=== PATIENT | female | born 1970 | race Hispanic/Latino ===

== ENCOUNTER 2021-04-29 08:10 | Day surgery (SDC) | payer OTHER ==
[2021-04-29] MEDS ORDERED: NITROGLYCERIN 0.4 MG TAB SUBL SL NR (08:48)
[2021-04-29] MEDS ORDERED: ATROPINE 0.1% (1 MG/10 ML) CARDIAC SYRINGE ONE (09:51)
[2021-04-29] MEDS ORDERED: METOPROLOL TARTRATE 5 MG/5 ML INJ IV ONE (09:53)
[2021-04-29] MEDS ORDERED: METOPROLOL TARTRATE 50 MG TAB PO SCH (10:00)
[2021-04-29 11:07] VITALS: BP 101/58
--- NOTE | 2021-04-29 11:09 | Cat Scan Report ---
CTA HEART WITH AND WITHOUT CONTRAST 04/29/2021 9:55 AM TECHNIQUE: Routine ECG-gated coronary CT angiography performed on a 64-channel system. 3-D/MIP reform ats were postprocessed. Note that this exam targets the heart and the entire chest was not imaged. CONTRAST: 100 ml Omnipaque 350 HISTORY: Chest Pain COMPARISONS: none PREMEDICATION: See nurse's notes. FINDINGS: CARDIAC/CORONARY FINDINGS: Please see cardiology report in this particular case. EXTRACARDIAC/EXTRACORONARY FINDINGS: VISUALIZED LUNGS: unremarkable VISUALIZED MEDIASTINUM: unremarkable VISUALIZED CHEST WALL: unremarkable VISUALIZED UPPER ABDOMEN: Moderate hepatic steatosis is evident. No obvious liver lesion in the visua lized liver. . IMPRESSION 1. Please see cardiology dictation in this particular case for the cardiac/coronary findings. 2. Hepatic steatosis. DISCLAIMER: This is a combined radiology and cardiology interpretation. Cardiology is solely responsible for rep orting of cardiac and coronary findings. Radiology is solely responsible for reporting of the extrac ardiac and extracoronary findings. Signer Name: Augusto Manning Jr, MD Signed: 04/29/2021 11:04 AM Workstation Name: [id number]
--- NOTE | 2021-04-30 06:36 | CT Calcium Scoring Report ---
Coronary Calcium Score Date of service: 04/30/21 Procedure: High-resolution computed tomographic imaging of the chest was performed on04/29/21 with particular attention paid to the coronary arteries. Images from the examination were analyzed for the presence and extent of coronary artery calcification, using coronary calcium quantification software. The patient tolerated the procedure well and there were no complications. The results of the coronary calcification analysis are provided below. The patient scores are compared with published data related to scores for people of a similar age and the same gender. - Findings Left Anterior Descending Artery: 4 Left Circumflex(LCX): 31.4 Right Coronary Artery(RCA): 31 Total Agatson Score: 66.4 Percentile Rankin Findings: Cardiac CTA Indication: chest pain Informed consent obtained Procedure: The patient was brought to the cardiac ct laboratory at [facility] in stable condition after a 4 hour fast. Heart rate was regulated by beta blockade. Sublingual ngt was administered. After data acquisition and reconstruction, the images were processed and reviewed on the computer workstation. Multiple phases of the cardiac cycle were assessed for image interpretation. Volume rendered images, multiplanar reformated images, and maximum intensity projections images were generated and reviewed A coronary calcium score was performed via the Agatston method. A separate radiology assessment of the non cardiac structures in the field of view will be provided. Superior vena cava in the field of view appears normal Inferior vena cava in the filed of view appears normal Ascending aorta in the field of view appears normal Descending aorta in the field of view appears normal Pulmonary artery in the filed of view appears normal Pulmonary veins enter the left atrium appropriately Left ventricle appears normal Right Ventricle appears normal Left atrium appears normal Left atrial appendage appears normal Right atrium appears normal Interventricular septum appears normal Interatrial septum appears normal Aortic valve appears normal Mitral Valve appears normal Intracardiac mass: none Pericardial effusion: none Coronary Angiography: Dominance: right Origins: normal Left main: normal Left anterior descending coronary artery and diagonal branches: non obstructive mixed calcific non calcific plaque in proximal vessel ~25-50% luminal narrowing Circumflex coronary artery and obtuse marginal branches: non obstructive mixed plaque ~25-50% luminal narrowing in ostial portion of vessel. non obstructive calcific plaque in mid portion of vessel, ~25-50% luminal narrowing Right coronary artery: non obstrucitve caclific plaque in proximal vessel ~25% luminal narrowing. mixed calcific non calcific plaque mid vessel ~50% luminal narrowing (but vessel is small at this location and difficult to assess.) the procedure was tolerated well. there were no procedural complications.
== END 2021-04-29 10:45 | disposition home or self-care (01) ==
LOC: CATHLABREC 08:10 → EDSTATUS 09:45 → CATHLABREC 10:45
PROVIDERS: ATTEND Internal Medicine
DX: R07.9 Chest pain, unspecified (principal); K76.0 Fatty (change of) liver, not elsewhere classified; I10 Essential (primary) hypertension; E78.00 Pure hypercholesterolemia, unspecified; Z79.899 Other long term (current) drug therapy; Z88.2 Allergy status to sulfonamides
CPT/HCPCS: 36415; 75574; 82565; 84520; Q9967; J0461

== ENCOUNTER 2021-06-06 06:45 | Day surgery (SDC) | payer OTHER ==
[2021-06-06 07:41] LABS: Basophils % (Auto) 0.9 % (0.0-1.8); Eosinophils # (Auto) 0.2 K/mm3 (0.0-0.4); Eosinophils % (Auto) 5.3 % (0.0-4.3); Lymphocytes # (Auto) 1.4 K/mm3 (1.2-5.4); Lymphocytes % (Auto) 30.7 % (13.4-35.0); Mean Corpuscular HGB Conc 36 % (30-34); Mean Corpuscular Volume 91 fl (79-97); Monocytes # (Auto) 0.5 K/mm3 (0.0-0.8); Monocytes % (Auto) 11.7 % (0.0-7.3); Platelet Count 234 K/mm3 (140-440); Red Blood Count 4.48 M/mm3 (3.65-5.03); Red Cell Distribution Width 12.7 % (13.2-15.2)
[2021-06-06 07:44] LABS: Hemoglobin 14.6 gm/dl (10.1-14.3)
[2021-06-06 07:46] LABS: Hematocrit 40.7 % (30.3-42.9)
[2021-06-06 07:49] LABS: Calcium 9.4 mg/dL (8.4-10.2)
[2021-06-06 07:55] LABS: INR 0.85 (0.87-1.13)
[2021-06-06] MEDS ORDERED: SODIUM CHLORIDE 0.9% 500 ML 500 ML IV SCH (08:00)
[2021-06-06] MEDS ORDERED: HEPARIN 10,000 UNITS/10 ML VIAL ONE (08:14)
[2021-06-06] MEDS ORDERED: HEPARIN/NS 5000 UNIT/500ML 1,000 ML IR ONE (08:14)
[2021-06-06] MEDS ORDERED: MIDAZOLAM 2 MG/2 ML INJ ONE (08:15)
[2021-06-06] MEDS ORDERED: VERAPAMIL 5 MG/2 ML INJ ONE (08:15)
[2021-06-06] MEDS ORDERED: NITROGLYCERIN SYRINGE 3 ML ONE (08:15)
[2021-06-06] MEDS ORDERED: fentaNYL 100 MCG/2 ML INJ ONE (08:15)
[2021-06-06] MEDS ORDERED: LIDOCAINE (2%) 20 MG/1 ML VIAL 20 ML MDV INFILTRATI ONE ×2 (08:15→08:56)
--- NOTE | 2021-06-06 08:25 | Short Stay Summary ---
Short Stay Documentation Date of service: 06/06/21 - History H&P: obtained from office Past Medical History: hypertension, hyperlipidemia Social history: no significant social history - Allergies and Medications Current Medications: Allergies Sulfa (Sulfonamide Antibiotics) Allergy (Verified 06/06/21 08:17) Rash Home Medications Medication Instructions Recorded Confirmed Last Taken Type Ezetimibe-Simvastatin 10-10 mg 10 mg PO DAILY 06/06/21 06/06/21 06/05/21 History 10 mg Losartan [Cozaar] 25 mg PO BID 06/06/21 06/06/21 06/05/21 History 2 tabs hydroCHLOROthiazide [HCTZ] 25 mg PO DAILY 06/06/21 06/06/21 06/05/21 History 25 mg Active Medications Sodium Chloride (Nacl 0.9% 500 Ml) 500 mls @ 50 mls/hr IV DIRECT CATHERINE Stop: 06/06/21 17:59 Last Admin: 06/06/21 08:19 Dose: 50 mls/hr Documented by: - Physical exam General appearance: no acute distress Integumentary: other (dressing clean dry intact no signs of bleeding or hematoma) Lungs: Clear to auscultation Heart: Regular rate, Normal S1, Normal S2 Gastrointestinal: normal, normoactive bowel sounds - Brief post op/procedure progress note Date of procedure: 06/06/21 Pre-op diagnosis: chest pain Post-op diagnosis: other (normal coronaries) Anesthesia: local Estimated blood loss: minimal - Disposition Condition at discharge: Good Disposition: 01 HOME / SELF CARE / HOMELESS Short Stay Discharge Plan Activity: advance as tolerated Diet: low fat, low cholesterol, low salt Wound: keep clean and dry, per your surgeon's advice Additional Instructions: Patient should follow up with Dr. Lonny Elam, [facility], in 6 weeks. Follow up with: PRIMARY CARE, [Primary Care Provider] - 7 Days Forms: CardCath PCI D/C Instructions
--- NOTE | 2021-06-06 08:36 | Electrocardiograph Report ---
[facility] Test Date: 2021-06-06 Test Time: 07:58:33 Pat Name: ARIE FINN Department: Room: Gender: F Infertility Nurse: PIYUSH : 1970 Requested By: JOSE LUIS FIELD Order Number: [id number] Reading MD: Jose Luis Field Measurements Intervals [place] Rate: 64 P: 68 CO: 230 QRS: 37 QRSD: 100 T: 17 QT: 408 QTc: 420 Interpretive Statements Sinus rhythm Prolonged CO interval No previous ECG available for comparison Electronically Signed On 06-06-2021 8:35:57 EDT by Jose Luis Field
[2021-06-06] MEDS ORDERED: MIDAZOLAM 2 MG/2 ML INJ IV ONE ×2 (08:50→09:01)
[2021-06-06] MEDS ORDERED: fentaNYL 100 MCG/2 ML INJ IV ONE (08:50)
[2021-06-06] MEDS ORDERED: HEPARIN 10,000 UNITS/10 ML VIAL ART-SHEATH ONE (08:59)
[2021-06-06] MEDS ORDERED: NITROGLYCERIN 600 MCG/3 ML SYRINGE ART-SHEATH ONE (08:59)
[2021-06-06] MEDS ORDERED: VERAPAMIL 5 MG/2 ML INJ ART-SHEATH ONE (08:59)
--- NOTE | 2021-06-06 09:51 | Cardiac Catherization Report ---
DATE OF PROCEDURE: 06/06/2021 INDICATIONS FOR PROCEDURE: The patient is a very pleasant 51-year-old gentleman, who has had some chest pain, normal stress test, mildly abnormal cardiac CT, referred for left heart catheterization. Risks, benefits, potential alternatives explained at length prior to obtaining informed consent. PROCEDURE IN DETAIL: The patient was brought to builder's labourer in postabsorptive state, prepped and draped in sterile fashion. German's test in right hand was normal. 2 mL of 2% lidocaine used to anesthetize the right wrist. A standard 6-[place] hydrophilic sheath used to cannulate the right radial artery via modified Seldinger technique. All exchanges performed to exchange a J-tip guidewire. JL3.5 catheter was used to engage the left main. No dampening or ventricularization. Cineangiography performed in all projections. JR4 catheter used to cross the aortic valve. Under fluoroscopic guidance, left ventriculography performed in 30 QUINN and 30 MALAY projections via hand injections, catheter flushed. Manual pullback performed with continuous pressure monitoring. Catheter was used to engage the right coronary. No dampening or ventricularization. Cineangiography was performed in multiple projections. Due to unremarkable coronaries and recurrent chest pain, root aortography was performed in the MALAY projection with a power injector and pigtail catheter. Next, catheter was removed from the body of wire, sheath removed. Manual pressure used to achieve hemostasis. I directly supervised the administration of moderate sedation from 8:40 to 9:20 a.m. The patient tolerated the procedure well without issue. No complications. DATA: Aortic pressure is 110/70, LV pressure is 110, LVEDP of 15 mmHg. Left ventriculography reveals normal systolic performance, estimated ejection fraction of 55-60%. No evidence of aortic stenosis. CORONARY ANATOMY: This is a codominant system. Left main without significant disease, bifurcates to left anterior descending and left circumflex. Left main has some disease. Left circumflex is a moderate-sized vessel, courses AV groove. No significant disease noted. Scattered luminal irregularities. LAD is a moderate-sized vessel, courses to anterior intergroove, wraps around the apex, no significant disease. Intramyocardial segment in the mid LAD is noted. No evidence of diastolic collapse. The right coronary is a moderate sized vessel, courses AV groove, distally bifurcates in the posterior descending and posterolateral branches. No discrete stenoses noted. CYNTHIA 3 flow. Root aortography reveals normal contour, normal size. No evidence of aortic dissection, penetrating aortic ulcer or aortic insufficiency. Normal great vessel anatomy. CONCLUSIONS: 1. 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 2. Codominant system. 3. Normal left ventricular systolic performance, estimated ejection fraction of 55-60%. 4. No evidence of aortic stenosis. 5. Normal LVEDP. 6. Normal root aortography without evidence of dissection, penetrating aortic ulcer or aortic insufficiency. These findings are reassuring. The patient's cardiac status is entirely stable. Standard radial care. Follow up with me in the office. Results of procedure explained to the patient and family. All questions were addressed. TID: [id number] RECEIPT: [id number] FRANKIE/SUZAN LEYVA
[2021-06-06 11:37] VITALS: BP 115/71
== END 2021-06-06 12:35 | disposition home or self-care (01) ==
LOC: CATHLABREC 06:45
PROVIDERS: ATTEND Internal Medicine
DX: R07.89 Other chest pain (principal); R93.1 Abnormal findings on diagnostic imaging of heart and coronary circulation; I10 Essential (primary) hypertension; E78.00 Pure hypercholesterolemia, unspecified; Z79.899 Other long term (current) drug therapy; Z98.890 Other specified postprocedural states; Z72.89 Other problems related to lifestyle; Z88.2 Allergy status to sulfonamides
CPT/HCPCS: 36415; 80048; 85025; 85610; 85730; 93005; 93458; 93567; 99156; 99157; C1894; J1644; J2250; J3010; J7040; Q9967